=== PATIENT | female | born 1955 | race Caucasian/White ===

== ENCOUNTER 2022-09-08 14:12 | Emergency (ER) | payer BC ==
[~2022-09-08] VITALS: Ht 175.3 cm; Wt 86.0 kg
[~2022-09-08 14:12] MED LIST: CIPROFLOXACN500 MG PO; NAPROSYN500 MG PO; PYRIDIUM200 MG PO; SILVADENE1 % EX; TET/DIP TOX1 ML IM; no meds
[2022-09-08 14:18] VITALS: BP 177/90
[2022-09-08 14:20] VITALS: BP 189/95
[2022-09-08 14:40] VITALS: BP 169/86
[2022-09-08 15:00] VITALS: BP 189/80
[2022-09-08 15:20] VITALS: BP 176/96
[2022-09-08] MEDS ORDERED: ULTRAM50 MG PO (15:41)
[2022-09-08] MEDS ORDERED: VIBRAMYCIN100 M2 PO (15:41)
[2022-09-08 15:44] VITALS: BP 176/96
== END 2022-09-08 15:50 | disposition home or self-care (01) | DRG 605 ==
LOC: ED 14:12
PROC: 0HQLXZZ Repair Left Lower Leg Skin, External Approach (ICD-10-PCS; principal; 2022-09-08)
DX: S81.812A Laceration without foreign body, left lower leg, initial encounter (principal); S93.401A Sprain of unspecified ligament of right ankle, initial encounter; W11.XXXA Fall on and from ladder, initial encounter; Y92.009 Unspecified place in unspecified non-institutional (private) residence as the place of occurrence of the external cause